=== PATIENT | male | born 1965 | race Caucasian/White ===

== ENCOUNTER 2018-03-14 10:05 | Outpatient (CLI) | payer BC | END 2018-03-14 10:06 | disposition home or self-care (01) | LOC: BICCT 10:05 | PROVIDERS: ATTEND Family Medicine | DX: Z12.31 Encounter for screening mammogram for malignant neoplasm of breast (principal); R10.10 Upper abdominal pain, unspecified; Z80.3 Family history of malignant neoplasm of breast | CPT/HCPCS: 74177 ==

== ENCOUNTER 2020-08-15 10:30 | Inpatient (IN) | payer BC ==
--- NOTE | 2020-08-21 16:44 | HP ---
HISTORY OF PRESENT ILLNESS: This is a 55-year-old gentleman with symptoms of angina and anterior lateral ischemia on stress test late last year. He underwent cardiac catheterization by Dr. Gallegos and was found to have significant LAD disease as well as intermediate ramus and circumflex. His potential targets of an LAD diagonal and distal branch of the obtuse marginal. The right coronary system has some disease, but is primarily distal. Cardiovascular risk factors include borderline hyperlipidemia, which has improved with lifestyle changes, and hypertension. He has no smoking history. He does have gastroesophageal reflux disease, anxiety disorder, and low back pain. HOME MEDICATIONS: Include: 1. Lisinopril 20 a day. 2. Atorvastatin 10 a day. 3. Aspirin 81 a day. ALLERGIES: NO KNOWN ALLERGIES. PAST SURGICAL HISTORY: Includes colonoscopy with polypectomy by Dr. Garcia. SOCIAL HISTORY: The patient is . 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 He does not exercise regularly. REVIEW OF SYSTEMS: Include frequent urination and all other questions in regard to symptoms were negative. PHYSICAL EXAMINATION: GENERAL: He is alert and cooperative gentleman. Height 6 feet 3 inches, weight 251 pounds. NECK: No carotid bruits. CARDIAC: Regular rate and rhythm. No murmurs. LUNGS: Clear to auscultation. ABDOMEN: Normal bowel sounds. Soft, nontender, and nondistended. EXTREMITIES: No clubbing, cyanosis, or edema. He has normal pulses with a good Jose Martin's test. NEUROLOGIC: Nonfocal. ASSESSMENT AND PLAN: The patient was seen about 5 weeks ago and has postponed his surgery until now. Plan on grafting to the LAD, diagonal, and obtuse marginal with a ELISE to the LAD and then saphenous vein to the diagonal and obtuse marginal. Job ID: [id number]
[2020-08-22] MEDS ORDERED: Albumin 5% 500 ML ONE (06:30)
[2020-08-22 06:35] LABS: #Eosinphils 0.2 thou/uL (0.0-0.7); #Monocytes 0.7 thou/uL (0.11-0.59); #Neutrophils 4.9 thou/uL (1.40-6.50); %Basophils 0.6 % (0.0-1.0); %Lymphocytes 25.3 % (21.0-51.0); %Monocytes 9.3 % (0.0-10.0); %Neutrophils 61.8 % (42.0-75.0); Hemoglobin 14.6 g/dL (14.0-18.0); Mean Corpuscular HGB CONC 34.5 g/dL (32.0-36.0); Mean Corpuscular Hemoglobin 31.9 pg (27.0-31.0); Mean Corpuscular Volume 92.4 fL (78.0-98.0); Mean Platelet Volume 8.9 fL (7.4-10.4); Platelet Count 212 thou/uL (130-400); RBC Distribution Width 12.4 % (11.5-14.5); Red Blood Cell (RBC) Count 4.57 mill/uL (4.70-6.10)
[2020-08-22] MEDS ORDERED: Fentanyl 250 MCG/5 ML VIAL ONE (06:43)
[2020-08-22] MEDS ORDERED: Dexmedetomidine 200 MCG/2 ML VIAL ONE (06:44)
[2020-08-22] MEDS ORDERED: Midazolam HCl 5 mg/5 ml Vial ONE (06:44)
[2020-08-22] MEDS ORDERED: Heparin 10,000 UNITS/1 ML VIAL 30,000 UNITS in Sodium Chloride 0.9% 1,000 ML FS SCH (06:45)
[2020-08-22 06:58] LABS: Anion Gap 14 mmol/L (10-20); BUN (Urea Nitrogen) 16 mg/dL (8.4-25.7); Calc. Creatinine Clearance 125 mL/min (70-130); Calcium 9.3 mg/dL (7.8-10.44); Carbon Dioxide 27 mmol/L (22-29); Chloride 103 mmol/L (98-107); Glucose 97 mg/dL (70-105); Potassium 4.9 mmol/L (3.5-5.1); Sodium 139 mmol/L (136-145)
[2020-08-22] MEDS ORDERED: Midazolam HCl 2 mg/2 ml Vial ONE ×2 (07:07→07:12)
[2020-08-22 07:12] LABS: SARS-CoV-2 NAA Rapid Test Not Detected (NotDetected)
[2020-08-22] MEDS ORDERED: Potassium Chloride 20 MEQ/100 ML PREMIX BAG IVPB PRN (12:19)
[2020-08-22] MEDS ORDERED: Bisacodyl 5 MG TAB PO PRN (12:19)
[2020-08-22] MEDS ORDERED: Fentanyl 100 MCG/2 ML VIAL SLOW IVP PRN (12:19)
[2020-08-22] MEDS ORDERED: Guaifenesin DM 100-10/5 ML UDCUP PO PRN (12:19)
[2020-08-22] MEDS ORDERED: Hetastarch 6% 500 ML 500 ML IVPB PRN (12:19)
[2020-08-22] MEDS ORDERED: Morphine 2 MG/ML VIAL SLOW IVP PRN (12:19)
[2020-08-22] MEDS ORDERED: Mag-Al 1200 mg/1200 mg/30 ML UDCUP PO PRN (12:19)
[2020-08-22] MEDS ORDERED: Norepinephrine 8 MG/0.9% NS 250 ML IVPB PRN (12:19)
[2020-08-22] MEDS ORDERED: Promethazine HCl 25 MG/ML VIAL IM PRN (12:19)
[2020-08-22] MEDS ORDERED: DOPamine 400 MG/D5W 250 ML 250 ML IVPB PRN (12:19)
[2020-08-22] MEDS ORDERED: Acetaminophen 325 MG TAB PO PRN (12:19)
[2020-08-22] MEDS ORDERED: Nitroglycerin 50 MG/250 ML BOT 250 ML IVPB PRN (12:19)
[2020-08-22] MEDS ORDERED: hydrALAZINE 20 MG/ML VIAL SLOW IVP PRN (12:19)
[2020-08-22] MEDS ORDERED: Bisacodyl 10 MG SUPP PR PRN (12:19)
[2020-08-22] MEDS ORDERED: Ondansetron PF 4 MG/2 ML Vial IVP PRN (12:19)
[2020-08-22] MEDS ORDERED: Post-Op Insulin Drip Protocol IVPB ONE (12:19)
[2020-08-22] MEDS ORDERED: niCARdipine 25 MG in Sodium Chloride 0.9% 250 ML 240 ML IVPB PRN (12:19)
[2020-08-22 12:30] LABS: #Eosinphils 0.1 thou/uL (0.0-0.7); #Lymphocytes 1.1 thou/uL (1.20-3.40); #Monocytes 0.7 thou/uL (0.11-0.59); #Neutrophils 11.6 thou/uL (1.40-6.50); %Basophils 0.3 % (0.0-1.0); %Eosinophils 0.6 % (0.0-10.0); %Lymphocytes 8.1 % (21.0-51.0); %Monocytes 4.9 % (0.0-10.0); %Neutrophils 86.1 % (42.0-75.0); Hemoglobin 13.5 g/dL (14.0-18.0); Mean Corpuscular HGB CONC 34.3 g/dL (32.0-36.0); Mean Corpuscular Hemoglobin 31.8 pg (27.0-31.0); Mean Corpuscular Volume 92.7 fL (78.0-98.0); Platelet Count 130 thou/uL (130-400); RBC Distribution Width 12.3 % (11.5-14.5); Red Blood Cell (RBC) Count 4.22 mill/uL (4.70-6.10); White Blood Cell (WBC) Count 13.5 thou/uL (4.8-10.8)
[2020-08-22] MEDS ORDERED: Magnesium 2 GM/50 ML 2 GM in Premix Bag 1 BAG IVPB SCH (12:30)
[2020-08-22 12:35] LABS: INR-International Normal Ratio 1.2; PTT 25.2 sec (22.9-36.1); Prothrombin Time 15.5 sec (12.0-14.7)
[2020-08-22] MEDS ORDERED: Dextrose 5% in Water 1,000 ML IV PRN (12:45)
[2020-08-22] MEDS ORDERED: Dextrose 50% Abboject 50 ML SYRINGE SLOW IVP PRN (12:45)
[2020-08-22] MEDS ORDERED: HUMULIN R 100 UNITS in Sodium Chloride 0.9% 100 ML IVPB SCH (12:45)
--- NOTE | 2020-08-22 12:45 | RAD ---
PORTABLE CHEST: HISTORY: Central line placement. FINDINGS: Heart size is enlarged. Postop sternotomy changes are seen. The right-sided central line is seen wi th catheter tip overlying the right atrium. No pneumothorax. IMPRESSION: 1. Right-sided central line placement. No signs of pneumothorax. 2. Post sternotomy change. POS: STEFANIE
[2020-08-22] MEDS: Fentanyl 100 MCG/2 ML VIAL SLOW IVP PRN ×2 (13:02→15:48)
[2020-08-22] MEDS: CEFAZOLIN 2 GM in Premix Bag 1 BAG IVPB SCH ×2 (13:04→21:36)
[2020-08-22] MEDS: Insulin Regular 300 UNITS/3 ML VIAL SC PRN ×3 (13:05→23:57)
[2020-08-22] MEDS: Ketorolac Tromethamine 30 MG/ML VIAL IVP SCH ×3 (13:06→23:54)
[2020-08-22] MEDS: Lactated Ringer's 1,000 ML IV SCH ×2 (13:07→23:55)
[2020-08-22 13:32] LABS: Anion Gap 13 mmol/L (10-20); BUN (Urea Nitrogen) 14 mg/dL (8.4-25.7); Calc. Creatinine Clearance 156 mL/min (70-130); Calcium 8.4 mg/dL (7.8-10.44); Carbon Dioxide 24 mmol/L (22-29); Chloride 108 mmol/L (98-107); Glucose 128 mg/dL (70-105); Potassium 4.4 mmol/L (3.5-5.1); Sodium 141 mmol/L (136-145)
--- NOTE | 2020-08-22 13:50 | OP ---
DATE OF PROCEDURE: 08/22/2020 PREOPERATIVE DIAGNOSIS: Coronary artery disease. POSTOPERATIVE DIAGNOSIS: Coronary artery disease with false passage on attempt at placing urinary catheter. PROCEDURE PERFORMED: Urethral cystoscopy with placement of a [place] tip Gibson catheter and coronary artery bypass grafting x3, left internal mammary artery good quality to a good quality left anterior descending, saphenous vein good quality to a 2 mm diagonal and 1.5 mm obtuse marginal. HOOKING MACHINE OPERATOR: Dr. Gomez. TRANSFUSION: None. DESCRIPTION OF PROCEDURE: After adequate anesthesia had been obtained, the patient was not prepped and draped because the Gibson catheter could not be passed. The cystoscope was then passed by myself and a false passage was identified and ultimately, the true lumen was identified. The cystoscope inserted and a wire placed in the bladder. Following which, a 16 [place] tip catheter was advanced and urine obtained. Following this, the patient was prepped and draped. Dr. Gomez did an endovascular vein harvest while I performed a median sternotomy. Left internal mammary artery was harvested, widely opening of the left pleura. Following heparinization, the mammary was divided distally. There was a very large amount of thymic tissue, which was excised to allow access to the aorta. Following aortic and right atrial cannulation, cardiopulmonary bypass was instituted. Vessels inspected and the aorta was cross-clamped and a liter of cold blood cardioplegia given through the aortic root. The three distal anastomoses were completed, following which, the cross-clamp was removed and the partial occluding clamp placed and 2 proximal anastomoses performed on the aortic root and marked with rings. Following this, proximal and distal anastomosis were inspected. The patient was then weaned from cardiopulmonary bypass. Cannulas were removed and protamine was given systemically. After obtaining good hemostasis, mediastinal and left pleural drains were placed, following which, the sternum was reapproximated with #7 interrupted wire using vancomycin paste on the sternal edges, platelet-rich blood and platelet-poor plasma. Subcutaneous tissue and skin were closed in layers. Job ID: [id number]
[2020-08-22] MEDS ORDERED: Norepinephrine 4 MG/4 ML VIAL ONE (15:44)
[2020-08-22] MEDS ORDERED: Potassium Chloride 60 MEQ/30 ML VIAL ONE (15:44)
[2020-08-22] MEDS ORDERED: Calcium Chloride 1 GM/10 ML Abboject SYRINGE ONE (15:44)
[2020-08-22] MEDS ORDERED: Vecuronium 10 MG VIAL ONE (15:44)
[2020-08-22] MEDS ORDERED: Nitroglycerin 50 MG/250 ML BOT ONE (15:44)
[2020-08-22] MEDS ORDERED: Mannitol 12.5 GM/50 ML ONE (15:44)
[2020-08-22] MEDS ORDERED: Thrombin 5000 UNITS/5 ML VIAL ONE (15:44)
[2020-08-22] MEDS ORDERED: Heparin 5,000 UNITS/ML VIAL ONE (15:44)
[2020-08-22] MEDS ORDERED: Lidocaine 2% PF 100 mg/5 ml Syringe ONE (15:44)
[2020-08-22] MEDS ORDERED: Glycopyrrolate 0.2 MG/ML 5 ML SYRINGE ONE (15:44)
[2020-08-22] MEDS ORDERED: Ondansetron PF 4 MG/2 ML Vial ONE (15:44)
[2020-08-22] MEDS ORDERED: Aminocaproic Acid 5 GM/20 ML VIAL ONE (15:44)
[2020-08-22] MEDS ORDERED: Heparin 30,000 units/30 ml VIAL ONE (15:44)
[2020-08-22] MEDS ORDERED: Lidocaine 1% PF 5 ML VIAL ONE (15:44)
[2020-08-22] MEDS ORDERED: Ketorolac Tromethamine 30 MG/ML VIAL ONE (15:44)
[2020-08-22] MEDS ORDERED: Papaverine 60 MG/2 ML VIAL ONE (15:44)
[2020-08-22] MEDS ORDERED: Cardioplegic Soln 1,000 ML BAG ONE (15:44)
[2020-08-22] MEDS ORDERED: Protamine Sulfate 250 MG/25 ML VIAL ONE (15:44)
[2020-08-22] MEDS ORDERED: Sodium Bicarb 50 MEQ/50 ML Abboject 8.4% SYRINGE ONE (15:44)
[2020-08-22] MEDS ORDERED: PROPOFOL 200 MG/20 ML VIAL ONE (15:44)
[2020-08-22] MEDS ORDERED: Dexamethasone 20 MG/5 ML VIAL ONE (15:44)
[2020-08-22] MEDS ORDERED: Magnesium Sulfate 1 GM/2 ML VIAL ONE (15:44)
--- NOTE | 2020-08-22 16:08 | CON ---
DATE OF CONSULTATION: 08/22/2020 REASON FOR CONSULTATION: Status post CABG. HISTORY OF PRESENT ILLNESS: Mr. Araiza is a very pleasant 55-year-old white gentleman, who comes to the hospital for a planned bypass. He underwent left heart catheterization earlier in the year and was found to have a complex LAD lesion, so he was referred to Dr. Bird for surgery. He had been rescheduled several times due to the coronavirus crisis, but eventually, we were able to get him in today. Dr. Bird did his bypass earlier today. On my evaluation, Mr. Araiza is extubated and doing well, complaining of just soreness of his chest, but denies any other issues. PAST MEDICAL HISTORY: 1. Hypertension. 2. CAD. OUTPATIENT MEDICATIONS: 1. Atorvastatin 10 mg a day. 2. Aspirin 81 mg a day. 3. Lisinopril 20 mg a day. PAST SURGICAL HISTORY: 1. Heart catheterization as above. 2. CABG earlier today. 3. Colonoscopy with polypectomy with Dr. Garcia. FAMILY HISTORY: Noncontributory. SOCIAL HISTORY: No alcohol, tobacco, or drugs. 2 to 3 cups of coffee and soda a day. Social alcohol use. ALLERGIES: NO KNOWN DRUG ALLERGIES. REVIEW OF SYSTEMS: A 12-point review of systems was done and was found to be negative other than stated in the history of present illness. PHYSICAL EXAMINATION: VITAL SIGNS: Temperature 98.2, pulse 77, respiratory rate 16, saturating 99% on room air, blood pressure 107/56. GENERAL: Awake, alert, oriented x3. No distress. HEENT: Normocephalic, atraumatic. NECK: Supple. LUNGS: Clear. CARDIOVASCULAR: S1 and S2. Three-component rub. He has chest tubes in place. ABDOMEN: Soft. EXTREMITIES: [place] from the left leg. Trace edema. SKIN: Warm and dry. LABORATORY DATA: Laboratory work was reviewed. White count after the bypass at 13, hemoglobin 13.5, hematocrit 39, platelet count 130. Coags were normal. Chemistries were unremarkable postop. COVID PCR was negative on that is today. ASSESSMENT: 1. Complex coronary artery disease, status post CABG. 2. Hypertension. PLAN: 1. Continue postoperative care. 2. Aspirin and statin for life. 3. Beta elizabeth and SAIMA inhibitor once blood pressure allow. Thank you for letting us to participate in the care of your patient. We will follow. Job ID: [id number]
[2020-08-22] MEDS: HYDROcodone/Acetaminophen 5/325 mg Tablet PO PRN ×2 (17:45→21:36)
[2020-08-22 17:56] LABS: Hemoglobin 13.8 g/dL (14.0-18.0)
[2020-08-22 18:17] LABS: Potassium 4.2 mmol/L (3.5-5.1)
[2020-08-22] MEDS ORDERED: Atorvastatin Calcium 20 MG TAB PO SCH (21:00)
[2020-08-22] MEDS ORDERED: Simvastatin 20 MG TAB PO SCH (21:00)
--- NOTE | 2020-08-22 21:25 | EKG ---
Test Reason : POST CABG Blood Pressure : / mmHG Vent. Rate : 074 BPM Atrial Rate : 074 BPM P-R Int : 188 ms QRS Dur : 092 ms QT Int : 434 ms P-R-T Axes : 063 039 046 degrees QTc Int : 481 ms Normal sinus rhythm Prolonged QT Abnormal ECG Confirmed by KYLE CORNELL, DR. Mao ([id number]) on 08/22/2020 9:25:14 PM Referred By: JOSE GUADALUPE Confirmed By:DR. Daylin WRIGHT MD
[2020-08-22] MEDS: Famotidine/PF 20 mg/2ml Vial SLOW IVP SCH (21:35)
[2020-08-23 04:39] LABS: #Monocytes 1.2 thou/uL (0.11-0.59); #Neutrophils 14.9 thou/uL (1.40-6.50); %Eosinophils 0.1 % (0.0-10.0); %Lymphocytes 5.9 % (21.0-51.0); %Monocytes 7.2 % (0.0-10.0); %Neutrophils 86.8 % (42.0-75.0); Mean Corpuscular HGB CONC 32.6 g/dL (32.0-36.0); Mean Corpuscular Hemoglobin 29.9 pg (27.0-31.0); Mean Corpuscular Volume 91.6 fL (78.0-98.0); Mean Platelet Volume 8.9 fL (7.4-10.4); Platelet Count 207 thou/uL (130-400); RBC Distribution Width 12.5 % (11.5-14.5); Red Blood Cell (RBC) Count 4.02 mill/uL (4.70-6.10); White Blood Cell (WBC) Count 17.1 thou/uL (4.8-10.8)
[2020-08-23 04:58] LABS: Anion Gap 13 mmol/L (10-20); BUN (Urea Nitrogen) 15 mg/dL (8.4-25.7); Calc. Creatinine Clearance 148 mL/min (70-130); Calcium 7.8 mg/dL (7.8-10.44); Carbon Dioxide 23 mmol/L (22-29); Chloride 103 mmol/L (98-107); Glucose 139 mg/dL (70-105); Potassium 4.3 mmol/L (3.5-5.1); Sodium 135 mmol/L (136-145)
[2020-08-23] MEDS: Ketorolac Tromethamine 30 MG/ML VIAL IVP SCH ×4 (06:01→23:29)
[2020-08-23] MEDS: CEFAZOLIN 2 GM in Premix Bag 1 BAG IVPB SCH (06:01)
[2020-08-23] MEDS: Aspirin 325 MG TAB PO SCH (07:48)
[2020-08-23] MEDS: Famotidine/PF 20 mg/2ml Vial SLOW IVP SCH (07:48)
--- NOTE | 2020-08-23 08:14 | RAD ---
Exam: Chest one view HISTORY:Status post open heart surgery Comparison: 08/22/2020 FINDINGS: Lines and tubes: Stable sternotomy wires, left sided mediastinal drainage catheter and right-sided santacruz bclavian vascular catheter. Cardiac silhouette:Cardiomegaly. Aorta: Unremarkable Pulmonary vessels: Normal Costophrenic angles: Clear LUNGS: No masses or consolidation. Pneumothorax: None Osseous abnormalities: None IMPRESSION: Stable postoperative changes.
--- NOTE | 2020-08-23 09:21 | PRG ---
DATE OF SERVICE: SUBJECTIVE: Postoperative day #1 from coronary artery bypass graft x3. His first postoperative night was uneventful and he is currently sitting in the chair. His sugars have been good. His hemoglobin is 12 and his platelet count is 207. His creatinine is 0.9 and sugars have been reasonably good off insulin. His chest tube is at 375. He has no complaints. Lungs are clear. He has good color and no distress. PLAN: At this time is for a transfer to the floor. Due to his widely opened left pleura, we will leave his chest tube for one more day and begin Lasix tomorrow. Resume his beta-elizabeth when he can tolerate and then begin physical therapy. We will continue antibiotics for the time being with his urethral false passage and we will leave his Gibson catheter in probably until Wednesday and remove it Wednesday morning. Job ID: [id number]
[2020-08-23] MEDS: Lactated Ringer's 1,000 ML IV SCH (10:59)
[2020-08-23] MEDS: HYDROcodone/Acetaminophen 5/325 mg Tablet PO PRN ×2 (11:23→21:19)
[2020-08-23] MEDS ORDERED: Zolpidem Tartrate 5 MG TAB PO PRN (12:44)
[2020-08-23] MEDS ORDERED: Nitroglycerin 0.4 MG TAB (25 Tab Bottle) SL PRN (12:44)
[2020-08-23] MEDS ORDERED: diphenhydrAMINE 25 MG CAP PO PRN (12:44)
[2020-08-23] MEDS ORDERED: Polyethylene Glycol 3350 17 GM Packet PO SCH (13:00)
--- NOTE | 2020-08-23 15:09 | PDOC.CPN ---
- Subjective Date: 08/23/20 Time: 15:07 Interval history: He is doing much better. Passing gas but no BM. - Review of Systems General: denies: fever/chills, weight/appetite/sleep changes, night sweats, fatigue Respiratory: denies: cough, congestion, shortness of breath, exercise intolerance Cardiovascular: denies: chest pain, palpitation, edema, paroxysmal nocturnal dyspnea, orthopnea Gastrointestinal: denies: nausea, vomiting, diarrhea, constipation, abd pain, GI bleeding Musculoskeletal: denies: pain, tenderness, stiffness, swelling, arthritis/arthr algias Neurological: denies: numbness, syncope, seizure, weakness - Objective Allergies/Adverse Reactions: Allergies Allergy/AdvReac Type Severity Reaction Status Date / Time No Known Drug Allergies Allergy Verified 08/21/20 12:50 Visit Medications: Current Medications Acetaminophen (Acetaminophen 325 Mg Tab) 650 mg PO Q6H PRN PRN Reason: Headache/Fever Or Mild Pain Hydrocodone Bitart/Acetaminophen (Hydrocodone/Acetaminophen 5/325 Mg Tablet) 1 tab PO Q4H PRN PRN Reason: Moderate Pain (4-6) Last Admin: 08/22/20 17:45 Dose: 1 tab Documented by: Hydrocodone Bitart/Acetaminophen (Hydrocodone/Acetaminophen 5/325 Mg Tablet) 2 tab PO Q4H PRN PRN Reason: Severe Pain (7-10) Last Admin: 08/23/20 11:23 Dose: 2 tab Documented by: Al Hydroxide/Mg Hydroxide (Mag-Al 1200 Mg/1200 Mg/30 Ml Udcup) 30 ml PO Q4H PRN PRN Reason: Indigestion Albuterol/Ipratropium (Ipratropium/Albuterol Sulfate 3 Ml Neb) 3 ml NEB [id number] PRN PRN Reason: SOB Aspirin (Aspirin 325 Mg Tab) 325 mg PO DAILY [facility] Last Admin: 08/23/20 07:48 Dose: 325 mg Documented by: Atorvastatin Calcium (Atorvastatin Calcium 20 Mg Tab) 20 mg PO HS [facility] Last Admin: 08/22/20 21:35 Dose: 20 mg Documented by: Atorvastatin Calcium (Atorvastatin Calcium 10 Mg Tab) 10 mg PO HS [facility] Bisacodyl (Bisacodyl 5 Mg Tab) 10 mg PO Q12H PRN PRN Reason: Constipation Bisacodyl (Bisacodyl 10 Mg Supp) 10 mg AK Q12H PRN PRN Reason: Constipation Diphenhydramine HCl (Diphenhydramine 25 Mg Cap) 25 mg PO Q6H PRN PRN Reason: Itching & Insomnia or Leon Micky Famotidine (Famotidine 20 Mg Tab) 20 mg PO BID [facility] Fentanyl (Fentanyl 100 Mcg/2 Ml Vial) 25 mcg SLOW IVP Q2H PRN PRN Reason: Moderate Pain (4-6) Stop: 08/24/20 11:25 Last Admin: 08/22/20 15:48 Dose: 25 mcg Documented by: Fentanyl (Fentanyl 100 Mcg/2 Ml Vial) 50 mcg SLOW IVP Q2H PRN PRN Reason: Severe Pain (7-10) Stop: 08/24/20 11:25 Furosemide (Furosemide 40 Mg Tab) 40 mg PO DAILY [facility] Guaifenesin/Dextromethorphan (Guaifenesin Dm 100-10/5 Ml Udcup) 15 ml PO Q4H PRN PRN Reason: Cough Ceftriaxone Sodium 1 gm/ (Sodium Chloride) 100 mls @ 200 mls/hr IVPB 0600 [facility] Ketorolac Tromethamine (Ketorolac Tromethamine 30 Mg/Ml Vial) 15 mg IVP Q6HR [facility] Stop: 08/27/20 12:01 Last Admin: 08/23/20 11:24 Dose: 15 mg Documented by: Nitroglycerin (Nitroglycerin 0.4 Mg Tab (25 Tab Bottle)) 0.4 mg SL Q5MIN PRN PRN Reason: Chest Pain Ondansetron HCl (Ondansetron Pf 4 Mg/2 Ml Vial) 4 mg IVP Q6H PRN PRN Reason: Nausea/Vomiting Polyethylene Glycol (Polyethylene Glycol 3350 17 Gm Packet) 17 gm PO DAILY [facility] Potassium Chloride (Potassium Chloride 10 Meq Tab) 10 meq PO QAM-WM [facility] Promethazine HCl (Promethazine Hcl 25 Mg/Ml Vial) 6.25 mg IM Q4H PRN PRN Reason: Nausea/Vomiting Zolpidem Tartrate (Zolpidem Tartrate 5 Mg Tab) 5 mg PO HSPRN PRN PRN Reason: Insomnia Vital Signs & Weight: Vital Signs Temp Pulse Resp BP Pulse Ox 08/23/20 12:15 99.6 F 81 17 150/78 H 94 L 08/23/20 07:19 99 08/23/20 07:00 98.0 F Weight 254 lb 10.142 oz - Physical Exam General: alert & oriented x3 HEENT: mucus membranes moist Neck: supple neck Cardiac: regular rate and rhythm Lungs: clear to auscultation Neuro: grossly intact Abdomen: active bowel sounds Extremities: no edema Skin: clear Musculoskeletal: normal range of motion - Labs Result Diagrams: 08/23/20 04:20 08/23/20 04:20 - Telemetry Sinus rhythms and dysrhythmias: sinus rhythm - Assessment/Plan Assessment/Plan: 1. CAD 2. S/P CABG 3. HTN PLAN: - ASA/statin for life - Low dose ACEI tomorrow - BB in next few days.
[2020-08-23] MEDS: Atorvastatin Calcium 10 MG TAB PO SCH (20:42)
[2020-08-23] MEDS: Famotidine 20 MG TAB PO SCH (20:42)
[2020-08-24] MEDS: cefTRIAXone\\ROCEPHIN 1 GM in Sodium Chloride 0.9% 100 ML IVPB SCH (05:59)
[2020-08-24] MEDS: Ketorolac Tromethamine 30 MG/ML VIAL IVP SCH ×4 (06:00→23:36)
[2020-08-24] MEDS: Aspirin 325 MG TAB PO SCH (08:20)
[2020-08-24] MEDS: Famotidine 20 MG TAB PO SCH ×2 (08:20→20:56)
[2020-08-24] MEDS: Lisinopril 2.5 MG TAB PO SCH (08:20)
[2020-08-24] MEDS: Potassium Chloride 10 MEQ TAB PO SCH (08:21)
[2020-08-24] MEDS: Polyethylene Glycol 3350 17 GM Packet PO SCH (08:21)
[2020-08-24] MEDS: Furosemide 40 MG TAB PO SCH (08:21)
--- NOTE | 2020-08-24 11:11 | PDOC.CPN ---
- Subjective Date: 08/24/20 Time: 10:00 Interval history: No overnight events. No complaints. feels great overall. Had a mild fever last night now resolved. - Review of Systems General: reports: fever/chills. denies: weight/appetite/sleep changes, night sw eats, fatigue Respiratory: denies: cough, congestion, shortness of breath, exercise intolerance Cardiovascular: denies: chest pain, palpitation, edema, paroxysmal nocturnal dyspnea, orthopnea Gastrointestinal: denies: nausea, vomiting, diarrhea, constipation, abd pain, GI bleeding Musculoskeletal: denies: pain, tenderness, stiffness, swelling, arthritis/arthralgias Neurological: denies: numbness, syncope, seizure, weakness - Objective Allergies/Adverse Reactions: Allergies Allergy/AdvReac Type Severity Reaction Status Date / Time No Known Drug Allergies Allergy Verified 08/21/20 12:50 Visit Medications: Current Medications Acetaminophen (Acetaminophen 325 Mg Tab) 650 mg PO Q6H PRN PRN Reason: Headache/Fever Or Mild Pain Last Admin: 08/23/20 23:41 Dose: 650 mg Documented by: Hydrocodone Bitart/Acetaminophen (Hydrocodone/Acetaminophen 5/325 Mg Tablet) 1 tab PO Q4H PRN PRN Reason: Moderate Pain (4-6) Last Admin: 08/23/20 21:19 Dose: 1 tab Documented by: Hydrocodone Bitart/Acetaminophen (Hydrocodone/Acetaminophen 5/325 Mg Tablet) 2 tab PO Q4H PRN PRN Reason: Severe Pain (7-10) Last Admin: 08/23/20 11:23 Dose: 2 tab Documented by: Al Hydroxide/Mg Hydroxide (Mag-Al 1200 Mg/1200 Mg/30 Ml Udcup) 30 ml PO Q4H PRN PRN Reason: Indigestion Albuterol/Ipratropium (Ipratropium/Albuterol Sulfate 3 Ml Neb) 3 ml NEB [id number] PRN PRN Reason: SOB Aspirin (Aspirin 325 Mg Tab) 325 mg PO DAILY [facility] Last Admin: 08/24/20 08:20 Dose: 325 mg Documented by: Atorvastatin Calcium (Atorvastatin Calcium 10 Mg Tab) 10 mg PO HS [facility] Last Admin: 08/23/20 20:42 Dose: 10 mg Documented by: Bisacodyl (Bisacodyl 5 Mg Tab) 10 mg PO Q12H PRN PRN Reason: Constipation Bisacodyl (Bisacodyl 10 Mg Supp) 10 mg IA Q12H PRN PRN Reason: Constipation Diphenhydramine HCl (Diphenhydramine 25 Mg Cap) 25 mg PO Q6H PRN PRN Reason: Itching & Insomnia or Leon Micky Famotidine (Famotidine 20 Mg Tab) 20 mg PO BID [facility] Last Admin: 08/24/20 08:20 Dose: 20 mg Documented by: Fentanyl (Fentanyl 100 Mcg/2 Ml Vial) 25 mcg SLOW IVP Q2H PRN PRN Reason: Moderate Pain (4-6) Stop: 08/24/20 11:25 Last Admin: 08/22/20 15:48 Dose: 25 mcg Documented by: Fentanyl (Fentanyl 100 Mcg/2 Ml Vial) 50 mcg SLOW IVP Q2H PRN PRN Reason: Severe Pain (7-10) Stop: 08/24/20 11:25 Furosemide (Furosemide 40 Mg Tab) 40 mg PO DAILY [facility] Last Admin: 08/24/20 08:21 Dose: 40 mg Documented by: Guaifenesin/Dextromethorphan (Guaifenesin Dm 100-10/5 Ml Udcup) 15 ml PO Q4H PRN PRN Reason: Cough Ceftriaxone Sodium 1 gm/ (Sodium Chloride) 100 mls @ 200 mls/hr IVPB 0600 [facility] Last Admin: 08/24/20 05:59 Dose: 100 mls Documented by: Ketorolac Tromethamine (Ketorolac Tromethamine 30 Mg/Ml Vial) 15 mg IVP Q6HR [facility] Stop: 08/27/20 12:01 Last Admin: 08/24/20 06:00 Dose: 15 mg Documented by: Lisinopril (Lisinopril 2.5 Mg Tab) 2.5 mg PO DAILY [facility] Last Admin: 08/24/20 08:20 Dose: 2.5 mg Documented by: Nitroglycerin (Nitroglycerin 0.4 Mg Tab (25 Tab Bottle)) 0.4 mg SL Q5MIN PRN PRN Reason: Chest Pain Ondansetron HCl (Ondansetron Pf 4 Mg/2 Ml Vial) 4 mg IVP Q6H PRN PRN Reason: Nausea/Vomiting Polyethylene Glycol (Polyethylene Glycol 3350 17 Gm Packet) 17 gm PO DAILY [facility] Last Admin: 08/24/20 08:21 Dose: 17 gm Documented by: Potassium Chloride (Potassium Chloride 10 Meq Tab) 10 meq PO QAM-WM [facility] Last Admin: 08/24/20 08:21 Dose: 10 meq Documented by: Promethazine HCl (Promethazine Hcl 25 Mg/Ml Vial) 6.25 mg IM Q4H PRN PRN Reason: Nausea/Vomiting Zolpidem Tartrate (Zolpidem Tartrate 5 Mg Tab) 5 mg PO HSPRN PRN PRN Reason: Insomnia Vital Signs & Weight: Vital Signs Temp Pulse Resp BP BP Pulse Ox 08/24/20 07:44 99.0 F 87 18 116/63 94 L 08/24/20 04:00 99 F 71 18 105/53 L 93 L 08/23/20 23:41 100.3 F H 08/23/20 23:27 100.3 F H 97 16 120/66 Weight 249 lb - Physical Exam General: alert & oriented x3, appears well, no apparent distress HEENT: mucus membranes moist Neck: supple neck Cardiac: regular rate and rhythm Lungs: clear to auscultation Neuro: grossly intact Abdomen: soft, non-tender Extremities: no cyanosis, no edema Musculoskeletal: no pain - Labs Result Diagrams: 08/23/20 04:20 08/23/20 04:20 - Assessment/Plan Assessment/Plan: 1. CAD s/p CABG 2. HTN Overall Doing great. Continue walking. Hopefully home in the next 48 hours. R08/24/2020 Pt seen and evaluated. Agree with above assessment. No changes
[2020-08-24] MEDS: Atorvastatin Calcium 10 MG TAB PO SCH (20:56)
[2020-08-25 05:46] VITALS: BMI 31.0
[2020-08-25] MEDS: cefTRIAXone\\ROCEPHIN 1 GM in Sodium Chloride 0.9% 100 ML IVPB SCH (05:47)
[2020-08-25] MEDS: Ketorolac Tromethamine 30 MG/ML VIAL IVP SCH ×2 (05:57→14:10)
[2020-08-25] MEDS: Lisinopril 2.5 MG TAB PO SCH (08:37)
[2020-08-25] MEDS: Potassium Chloride 10 MEQ TAB PO SCH (08:37)
[2020-08-25] MEDS: Aspirin 325 MG TAB PO SCH (08:37)
[2020-08-25] MEDS: Famotidine 20 MG TAB PO SCH (08:37)
[2020-08-25] MEDS: Furosemide 40 MG TAB PO SCH (08:37)
[2020-08-25] MEDS: Polyethylene Glycol 3350 17 GM Packet PO SCH (08:39)
[2020-08-25 11:14] VITALS: TEMP 98.9
[2020-08-25 12:26] VITALS: BP 138/79
[2020-08-25] MEDS ORDERED: Metoprolol Tartrate 25 MG TAB PO SCH (21:00)
== END 2020-08-25 13:00 | disposition home or self-care (01) | DRG 236 ==
LOC: EDSTATUS 08-20 10:30 → SURG A 08-22 05:57 → IMCU/EMU 08-22 12:21 → 2NO 08-23 12:13
PROVIDERS: ADMIT Thoracic Surgery (Cardiothoracic Vascular Surgery); ATTEND Thoracic Surgery (Cardiothoracic Vascular Surgery)
PROC: 02100Z9 Bypass Coronary Artery, One Artery from Left Internal Mammary, Open Approach (ICD-10-PCS; principal; 2020-08-22)
PROC: 021109W Bypass Coronary Artery, Two Arteries from Aorta with Autologous Venous Tissue, Open Approach (ICD-10-PCS; 2020-08-22)
PROC: 06BQ4ZZ Excision of Left Saphenous Vein, Percutaneous Endoscopic Approach (ICD-10-PCS; 2020-08-22)
PROC: 5A1221Z Performance of Cardiac Output, Continuous (ICD-10-PCS; 2020-08-22)
PROC: 02H633Z Insertion of Infusion Device into Right Atrium, Percutaneous Approach (ICD-10-PCS; 2020-08-22)
DX: I25.10 Atherosclerotic heart disease of native coronary artery without angina pectoris (principal); K21.9 Gastro-esophageal reflux disease without esophagitis; F41.9 Anxiety disorder, unspecified; M54.5 Low back pain; I10 Essential (primary) hypertension; Z98.890 Other specified postprocedural states; Z79.82 Long term (current) use of aspirin; Z79.899 Other long term (current) drug therapy; Z82.49 Family history of ischemic heart disease and other diseases of the circulatory system; E78.2 Mixed hyperlipidemia; Z20.822 Contact with and (suspected) exposure to COVID-19
CPT/HCPCS: 36415; 36416; 36430; 71045; 80048; 80053; 82553; 83735; 84484; 85025; 85610; 85730; 86850; 86900; 86901; 93005; 93010; 93798; 96365; 96375; 96376; G0378; J0282; J0690; J0696; J1100; J1642; J1644; J1815; J1885; J2001; J2150; J2250; J2405; J2440; J2704; J2720; J3010; J3370; J3475; J3480; J3490; J7070; P9045; S0017; S0028; U0002

== ENCOUNTER 2020-08-25 16:50 | Inpatient (IN) | payer BC ==
--- NOTE | 2020-08-25 17:22 | RAD ---
Portable frontal chest radiograph: 08/25/2020 COMPARISON: 08/23/2020 HISTORY: Chest pain FINDINGS: Heart and mediastinal contours are stable. Stable midline sternotomy wires. No pneumothorax , focal consolidation, or alveolar edema. Mild increased linear density in the left perihilar region suggests volume loss or scar. Mild infiltrate is less likely. IMPRESSION: No focal consolidation or alveolar edema. Mild linear density in the left perihilar regio n.
[2020-08-25 17:30] LABS: #Eosinphils 0.1 thou/uL (0.0-0.7); #Monocytes 0.9 thou/uL (0.11-0.59); #Neutrophils 8.7 thou/uL (1.40-6.50); %Basophils 0.3 % (0.0-1.0); %Eosinophils 0.7 % (0.0-10.0); %Lymphocytes 9.4 % (21.0-51.0); %Neutrophils 81.7 % (42.0-75.0); Hemoglobin 11.6 g/dL (14.0-18.0); Mean Corpuscular HGB CONC 34.4 g/dL (32.0-36.0); Mean Corpuscular Hemoglobin 31.4 pg (27.0-31.0); Mean Corpuscular Volume 91.4 fL (78.0-98.0); Mean Platelet Volume 8.7 fL (7.4-10.4); Platelet Count 175 thou/uL (130-400); RBC Distribution Width 12.3 % (11.5-14.5); Red Blood Cell (RBC) Count 3.69 mill/uL (4.70-6.10); White Blood Cell (WBC) Count 10.7 thou/uL (4.8-10.8)
[2020-08-25] MEDS ORDERED: Amiodarone HCl 150 MG in Dextrose 5% in Water 100 ML IVPB SCH (17:30)
[2020-08-25] MEDS ORDERED: Amiodarone HCl 450 MG in Dextrose 5% in Water 250 ML IVPB SCH (17:30)
[2020-08-25 17:46] LABS: Albumin 3.5 g/dL (3.5-5.0); Calcium 8.2 mg/dL (7.8-10.44); Chloride 105 mmol/L (98-107); Globulin 2.7 g/dL (2.4-3.5); Glucose 137 mg/dL (70-105); Protein, Total 6.2 g/dL (6.0-8.3); Sodium 138 mmol/L (136-145)
[2020-08-25 17:59] LABS: ALT (SGPT) 21 U/L (8-55); AST (SGOT) 23 U/L (5-34); Alkaline Phosphatase 52 U/L (40-110); BUN (Urea Nitrogen) 14 mg/dL (8.4-25.7); Bilirubin, Total 0.9 mg/dL (0.2-1.2); Calc. Creatinine Clearance 0 mL/min (70-130); Carbon Dioxide 22 mmol/L (22-29); Magnesium 2.1 mg/dL (1.6-2.6)
[2020-08-25 18:06] LABS: Anion Gap 15 mmol/L (10-20)
[2020-08-25 18:10] LABS: CKMB 0.7 ng/mL (0-6.6)
--- NOTE | 2020-08-25 21:04 | PDOC.HHP ---
Hospitalist HPI dizziness History of Present Illness: 55 yr old male with HTN , HLD, CAD s/p 3 V CABG 4 days ago , s/p discharge home today but developed sudden recurrent dizziness, nausea but no vomiting and palpitations after meals this pm . He checks his home vitals and noted HR elevated to 170s . He was brought by EMS -on arrival in ER , noted with SVT to 190s , He received Cardizem with improved to 106 and started on amiodarone gtt - denies any chest pain , no SOB -feels fine with HR down to 70s now -Being adm for SVT post CABG Allergies/Adverse Reactions: Allergy/AdvReac Type Severity Reaction Status Date / Time No Known Drug Allergies Allergy Verified 08/21/20 12:50 Home Medications: Medication Instructions Recorded Confirmed Type Atorvastatin Calcium 10 mg PO HS 08/21/20 08/21/20 History Aspirin 325 mg PO DAILY #120 tab 08/25/20 Rx HYDROcodone Bit/APAP 5/325 [[place]] 2 tab PO Q4H PRN #30 tab 08/25/20 Rx Levofloxacin [Levaquin] 750 mg PO 0600 #7 tab 08/25/20 Rx Lisinopril [Zestril] 2.5 mg PO DAILY #90 tab 08/25/20 Rx Metoprolol Tartrate [Lopressor] 0.5 tab PO BID #15 tab 08/25/20 Rx Past History: PMHx:CAD , HTN , CABG PSHx:CABG [address] Araujo FHx:not contributory Social: No smoking , no alcohol abuse, no illicit drug abuse Hospitalist HPI ROS All other systems reviewed; all pertinent +/- noted in HPI/Subj Hospitalist Exam General Appearance: NAD, awake alert Eye: PERRL, anicteric sclera ENT: normocephalic atraumatic, no oropharyngeal lesions Neck: supple, symmetric Heart: RRR, no murmur Respiratory: CTAB, no wheezes Gastrointestinal: soft, non-tender, non-distended, no palpable masses Extremities: no cyanosis, no clubbing Skin: normal turgor, no lesions Neurological: cranial nerve grossly intact, normal sensation to touch Musculoskeletal: normal tone, normal strength Psychiatric: normal affect, normal behavior, oriented to place Hospitalist Results Result Diagrams: 08/25/20 17:20 08/25/20 17:20 Lab results: Laboratory Last Values WBC 10.7 thou/uL (4.8-10.8) 08/25/20 17:20 RBC 3.69 mill/uL (4.70-6.10) L 08/25/20 17:20 Hgb 11.6 g/dL (14.0-18.0) L 08/25/20 17:20 Hct 33.7 % (42.0-52.0) L 08/25/20 17:20 MCV 91.4 fL (78.0-98.0) 08/25/20 17:20 MCH 31.4 pg (27.0-31.0) H 08/25/20 17:20 MCHC 34.4 g/dL (32.0-36.0) 08/25/20 17:20 RDW 12.3 % (11.5-14.5) 08/25/20 17:20 Plt Count 175 thou/uL (130-400) 08/25/20 17:20 MPV 8.7 fL (7.4-10.4) 08/25/20 17:20 Neutrophils % 81.7 % (42.0-75.0) H 08/25/20 17:20 Lymphocytes % 9.4 % (21.0-51.0) L 08/25/20 17:20 Monocytes % 8.0 % (0.0-10.0) 08/25/20 17:20 Eosinophils % 0.7 % (0.0-10.0) 08/25/20 17:20 Basophils % 0.3 % (0.0-1.0) 08/25/20 17:20 Neutrophils # 8.7 thou/uL (1.40-6.50) H 08/25/20 17:20 Lymphocytes # 1.0 thou/uL (1.20-3.40) L 08/25/20 17:20 Monocytes # 0.9 thou/uL (0.11-0.59) H 08/25/20 17:20 Eosinophils # 0.1 thou/uL (0.0-0.7) 08/25/20 17:20 Basophils # 0.0 thou/uL (0.0-0.2) 08/25/20 17:20 Sodium 138 mmol/L (136-145) 08/25/20 17:20 Potassium 4.0 mmol/L (3.5-5.1) 08/25/20 17:20 Chloride 105 mmol/L (98-107) 08/25/20 17:20 Carbon Dioxide 22 mmol/L (22-29) 08/25/20 17:20 Anion Gap 15 mmol/L (10-20) 08/25/20 17:20 BUN 14 mg/dL (8.4-25.7) 08/25/20 17:20 Creatinine 0.90 mg/dL (0.7-1.3) 08/25/20 17:20 Estimated GFR (MDRD) 88 08/25/20 17:20 Glucose 137 mg/dL (70-105) H 08/25/20 17:20 Calcium 8.2 mg/dL (7.8-10.44) 08/25/20 17:20 Magnesium 2.1 mg/dL (1.6-2.6) 08/25/20 17:20 Total Bilirubin 0.9 mg/dL (0.2-1.2) 08/25/20 17:20 AST 23 U/L (5-34) 08/25/20 17:20 ALT 21 U/L (8-55) 08/25/20 17:20 Alkaline Phosphatase 52 U/L (40-110) 08/25/20 17:20 CK-MB (CK-2) 0.7 ng/mL (0-6.6) 08/25/20 17:20 Troponin I 0.121 ng/mL (< 0.028) H 08/25/20 17:20 Serum Total Protein 6.2 g/dL (6.0-8.3) 08/25/20 17:20 Albumin 3.5 g/dL (3.5-5.0) 08/25/20 17:20 Globulin 2.7 g/dL (2.4-3.5) 08/25/20 17:20 Albumin/Globulin Ratio 1.3 g/dL (1.2-2.2) 08/25/20 17:20 Hospitalist H&P A/P (1) SVT (supraventricular tachycardia) Code(s): I47.1 - SUPRAVENTRICULAR TACHYCARDIA Status: Acute (2) S/P CABG x 3 Code(s): Z95.1 - PRESENCE OF AORTOCORONARY BYPASS GRAFT Status: Acute (3) Hypertension Code(s): I10 - ESSENTIAL (PRIMARY) HYPERTENSION Status: Acute Plan: SVTlikely due to post CABG -Continue amiodarone Follow cardiology consult Status post CABGstable Hypertensioncontrolled now Dispositionadmit to observation possible hospital stay for less than 24 hours
[2020-08-25 21:05] LABS: Troponin I 0.045 ng/mL (< 0.028)
[2020-08-25] MEDS ORDERED: Ondansetron PF 4 MG/2 ML Vial IVP PRN (21:20)
[2020-08-26] MEDS: Simethicone Chewable 80 MG TAB PO PRN ×3 (01:21→21:49)
[2020-08-26] MEDS: Amiodarone 450 MG in Dextrose 5% in Water 250 ML IVPB SCH ×2 (01:51→18:37)
[2020-08-26 06:14] LABS: Anion Gap 11 mmol/L (10-20); BUN (Urea Nitrogen) 11 mg/dL (8.4-25.7); Calc. Creatinine Clearance 0 mL/min (70-130); Calcium 8.4 mg/dL (7.8-10.44); Carbon Dioxide 24 mmol/L (22-29); Chloride 107 mmol/L (98-107); Glucose 106 mg/dL (70-105); Sodium 138 mmol/L (136-145)
[2020-08-26] MEDS ORDERED: Aspirin 325 MG TAB ONE (08:44)
[2020-08-26] MEDS ORDERED: Famotidine 20 MG TAB ONE (08:44)
[2020-08-26] MEDS ORDERED: Metoprolol Tartrate 5 MG/5 ML VIAL ONE (08:44)
[2020-08-26] MEDS: Famotidine 20 MG TAB PO SCH ×2 (09:34→21:49)
[2020-08-26] MEDS: Aspirin 325 MG TAB PO SCH (09:34)
[2020-08-26] MEDS: Lisinopril 2.5 MG TAB PO SCH (09:41)
[2020-08-26] MEDS: Metoprolol Tartrate 25 MG TAB PO SCH ×2 (09:46→21:50)
--- NOTE | 2020-08-26 13:56 | PDOC.HOSPP ---
- Subjective Encounter Date: 08/26/20 Encounter Time: 13:54 Subjective: no chest pain, sob - Objective Vital Signs & Weight: Vital Signs (12 hours) Pulse BP 08/26/20 09:41 75 139/78 Result Diagrams: 08/25/20 17:20 08/26/20 05:49 Hospitalist ROS - Medication Medications: Active Medications Generic Name Dose Route Start Last Admin Trade Name Freq PRN Reason Stop Dose Admin Aspirin 325 mg 08/26/20 09:00 08/26/20 09:34 Aspirin 325 Mg Tab PO 325 mg DAILY GENEVIEVE Administration Famotidine 20 mg 08/26/20 09:00 08/26/20 09:34 Famotidine 20 Mg Tab PO 20 mg BID GENEVIEVE Administration Amiodarone HCl 450 mg/ 259 mls @ 0 mls/hr 08/26/20 01:00 08/26/20 01:51 Dextrose/Water IVPB 259 mls INF GENEVIEVE Administration Protocol Per Protocol Lisinopril 2.5 mg 08/26/20 09:00 08/26/20 09:41 Lisinopril 2.5 Mg Tab PO 2.5 mg DAILY GENEVIEVE Administration Metoprolol Tartrate 12.5 mg 08/26/20 09:00 08/26/20 09:46 Metoprolol Tartrate 25 Mg Tab PO 12.5 mg BID GENEVIEVE Administration Simethicone 80 mg 08/25/20 21:43 08/26/20 11:02 Simethicone Chewable 80 Mg Tab PO 80 mg PCHS PRN Administration Gas Pain Hospitalist Exam Vitals: Vital Signs (12 hours) Pulse BP 08/26/20 09:41 75 139/78 General Appearance: awake alert Neck: no JVD Heart: RRR, no murmur Respiratory: CTAB Respiratory - other findings: healing mid-line chest incision Gastrointestinal: soft, non-distended, normal bowel sounds Extremities: 1+ LE edema Hosp A/P (1) CAD (coronary artery disease) Code(s): I25.10 - ATHSCL HEART DISEASE OF [place] CORONARY ARTERY W/O ANG PCTRS Status: Acute (2) S/P CABG x 3 Code(s): Z95.1 - PRESENCE OF AORTOCORONARY BYPASS GRAFT Status: Acute (3) SVT (supraventricular tachycardia) Code(s): I47.1 - SUPRAVENTRICULAR TACHYCARDIA Status: Acute (4) Dyslipidemia Code(s): E78.5 - HYPERLIPIDEMIA, UNSPECIFIED Status: Acute (5) Hypertension Code(s): I10 - ESSENTIAL (PRIMARY) HYPERTENSION Status: Acute - Plan in RSR on iv amiodarone consult with cardiology
--- NOTE | 2020-08-26 17:11 | CON ---
DATE OF CONSULTATION: 08/26/2020 REASON FOR CONSULTATION: Atrial fibrillation with RVR. PRIMARY WORKERS' COMPENSATION CLAIMS EXAMINER: Escobar Gallegos MD HISTORY OF PRESENT ILLNESS: Mr. Araiza is a pleasant 55-year-old white gentleman, who comes to the hospital for tachycardia. He was admitted on the 22 of August for a planned CABG performed by Dr. Bird. He had a bypass done. He actually did very well postoperatively. Yesterday, he was sent home and about 3 hours into being at home, Gio relaxing, he suddenly felt lightheaded and palpitations. His heart rate was in the 190s, 180s. This was coming and going, eventually stayed, so he called 911 and he was found to be tachycardic with a heart rate in the 190s on the way over, thought to be either SVT versus atrial fibrillation. He was brought to the ER where he was given a bolus of amiodarone and he slowed down and has actually converted back into sinus rhythm. Looking at the EKG, it looks like he was in atrial fibrillation at that time. PAST MEDICAL HISTORY: 1. Hypertension. 2. Coronary artery disease as above. OUTPATIENT MEDICATIONS: 1. Aspirin 325 mg a day. 2. [place] p.r.n. 3. Lisinopril 2.5 mg a day. 4. Levaquin 750 mg a day. 5. Metoprolol tartrate 25 mg half a tab twice a day. 6. Atorvastatin 10 mg a day. ALLERGIES: NO KNOWN DRUG ALLERGIES. SOCIAL HISTORY: No alcohol, tobacco, or drugs. Drinks about 3 cups of coffee a day. 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 REVIEW OF SYSTEMS: A 12-point review of systems was done and was found to be negative other than stated in the history of present illness. PHYSICAL EXAMINATION: VITAL SIGNS: Temperature 97.2, pulse 75, respiratory rate 16, sat 98% on room air, blood pressure 139/78. GENERAL: Awake, alert, oriented x3, in no distress. HEENT: Normocephalic, atraumatic. NECK: Supple. LUNGS: Clear. CARDIOVASCULAR: S1, S2. No S3 or S4. No murmurs or rubs. ABDOMEN: Soft. Positive bowel sounds. EXTREMITIES: No edema. SKIN: Warm and dry. LABORATORY WORK: Reviewed. CBC with a white count of 10, hemoglobin of 11, hematocrit of 33, platelet count of 175. Chemistries were unremarkable. Troponin was 0.12, 0.04, 0.10, and CK-MB was normal. ASSESSMENT: 1. Postoperative atrial fibrillation. 2. Severe multivessel disease, status post CABG. 3. Hypertension. PLAN: 1. We will switch his amiodarone drip to p.o. We will give him his first dose right now of amiodarone at 400 mg twice a day, first dose now. We will keep him overnight and if tomorrow he remains in sinus rhythm after his a.m. dose, then he may go home tomorrow with an amiodarone load at 400 mg twice a day for 10 days and then 200 mg a day after that for maintenance. We will get an EKG tomorrow to make sure his QT is not prolonged. 2. This is considered postop atrial fibrillation and no indication for anticoagulation at this time. If he recurs after monthly, we will re-evaluate and may give anticoagulation at that point. Aspirin alone for now. Thank you for letting us to participate in the care of your patient. We will follow. Job ID: [id number]
[2020-08-26 17:25] VITALS: BMI 31.9
[2020-08-26] MEDS ORDERED: Atorvastatin Calcium 10 MG TAB PO SCH (21:00)
[2020-08-26] MEDS: Amiodarone 200 MG TAB PO SCH (21:49)
[2020-08-27 07:51] VITALS: BP 117/63; TEMP 97.8
[2020-08-27] MEDS: Metoprolol Tartrate 25 MG TAB PO SCH (09:47)
[2020-08-27] MEDS: Aspirin 325 MG TAB PO SCH (09:47)
[2020-08-27] MEDS: Amiodarone 200 MG TAB PO SCH (09:47)
[2020-08-27] MEDS: Lisinopril 2.5 MG TAB PO SCH (09:47)
[2020-08-27] MEDS: Famotidine 20 MG TAB PO SCH (09:47)
--- NOTE | 2020-08-27 10:37 | DIS ---
DATE OF ADMISSION: 08/26/2020 DATE OF DISCHARGE: 08/27/2020 PRIMARY CARE PROVIDER: Milad Dang MD. DISPOSITION: Discharged home. FINAL DIAGNOSES: Atrial fibrillation with rapid ventricular response, status post coronary artery bypass graft, coronary artery disease, hypertension, dyslipidemia. DISCHARGE MEDICATIONS: New; 1. Amiodarone 400 mg p.o. b.i.d. x10 days, then 200 mg p.o. b.i.d. after that. 2. Aspirin 325 mg a day. 3. Lipitor 10 mg a day. 4. Lisinopril 2.5 mg a day. 5. Metoprolol 25 mg half tablet twice a day. ALLERGIES: NO KNOWN DRUG ALLERGIES. DIET: Heart healthy. PENDING AT TIME OF DISCHARGE: Nothing. CODE STATUS: Full. HOSPITAL COURSE: The patient was discharged on 08/25 from the hospital. Several hours later, he developed sweats, dizziness, severe palpitations, that his heart rate was in the 170s, brought to EMS. Heart rate was in the 190s, received Cardizem and then amiodarone infusion. Heart rate came down. He eventually transitioned spontaneously into sinus rhythm. Since then he has had 1 episode of 32-beats of atrial fibrillation. He was seen in consultation by Dr. Escobar Gallegos. The patient is currently on p.o. amiodarone, off IV. He is in regular sinus rhythm, feeling well. I have discussed the case with Dr. Gallegos. He is agreeable with the patient being discharged. He is being cautioned about further irregular beats, if he has palpitations he is to call Dr. Gallegos or his primary care provider. If it is severe, he is to return to the emergency room. I have asked him to see his primary care provider in 3 days, to see Dr. Gallegos per his request. Job ID: [id number] [facility]
--- NOTE | 2020-08-27 22:16 | EKG ---
Test Reason : Blood Pressure : / mmHG Vent. Rate : 076 BPM Atrial Rate : 076 BPM P-R Int : 162 ms QRS Dur : 092 ms QT Int : 388 ms P-R-T Axes : 071 053 053 degrees QTc Int : 436 ms Normal sinus rhythm Nonspecific T wave abnormality now evident in Can not rule out Inferior infarct , age undetermined Abnormal ECG When compared with ECG of 25-AUG-2020 17:03, (Unconfirmed) Inferior infarct is now Present Confirmed by Madelyn GARCIA ([id number]) on 08/27/2020 10:16:20 PM Referred By: LONG Confirmed By:Madelyn GARCIA
--- NOTE | 2020-08-29 00:35 | PQF ---
CLINICAL DOCUMENTATION CLARIFICATION FORM: Dear : Brian Terrell Date / Time: 08/29/202033 Please exercise your independent, professional judgment in responding to the clarification form. Clinical indicators are provided on the bottom of this form for your review Please check appropriate box(s): [ p ] Paroxysmal Atrial Fibrillation [ ] Permanent Atrial Fibrillation [ ] Persistent Atrial Fibrillation [ ] Long Standing Persistent Atrial Fibrillation [ ] Chronic Atrial Fibrillation [ ] Post-Operative Complication - Atrial Fibrillation, specified as: [ ] Paroxysmal Atrial Fibrillation [ ] Persistent Atrial Fibrillation [ ] Other Diagnosis, please specify [ ] Unable to Determine Physician Signature: Date/Time: For continuity of documentation, please document condition throughout progress notes and discharge summary. Thank You. To be completed by CDI/Coding staff for physician review: Present Clinical Indicators - Signs / Symptoms / Labs Results and Location in Medical Record [x] BP 125/79, Pulse 125, Resp 20 Vital signs 08/25 [x] Develop sudden recurrent dizziness, nausea but no vomiting and palpitation H&P p1 08/25 Dr York [x] On ER noted with SVT to 190s H&P p1 08/25 Dr York [x] Being admiited for SVT post CABG H&P p1 08/25 Dr York [x] Had CABG 3 days ago H&P p1 08/25 Dr York [x] Postoperative atrial fibrillation Consult Dr Gallegos 08/26 Present Risk Factors Results and Location in Medical Record [x] HTN H&P p1 08/25 Dr York [x] CAD s/p CABG H&P p1 08/25 Dr York [x] HLD HP 08/25 Present Treatments Results and Location in Medical Record [x] IV Lopressor 5 mg SEP 03 [x] IV Cardizem 25 mg SEP 03 [x] IV Amiodaron Hcl 150 mg SEP 03 [x] Aspirin 325 mg oral SEP 03 [x] Cardio Consult Consult Dr Gallegos 08/26 CDS/Outpatient Receptionist Signature: Sharon Chialicja Phone #: [phone] Date/Time: 08/29/2033 This is a permanent part of the Medical Record [facility]
== END 2020-08-27 11:08 | disposition home or self-care (01) | DRG 310 ==
LOC: ERS 16:50 → ERHOLD 19:24 → 2NO 08-26 16:55 → OBSVTOIN 08-26 17:46
PROVIDERS: ADMIT Internal Medicine; ATTEND Internal Medicine
DX: I48.0 Paroxysmal atrial fibrillation (principal); Z95.1 Presence of aortocoronary bypass graft; I47.1 Supraventricular tachycardia; I25.10 Atherosclerotic heart disease of native coronary artery without angina pectoris; I10 Essential (primary) hypertension; E78.5 Hyperlipidemia, unspecified; Z79.82 Long term (current) use of aspirin; Z79.899 Other long term (current) drug therapy; Z79.890 Hormone replacement therapy
CPT/HCPCS: 36415; 71045; 80053; 82553; 83735; 84484; 85025; 93005; J0282; J7070

== ENCOUNTER 2022-10-01 14:40 | Outpatient (CLI) | payer BC | END 2022-10-01 14:41 | disposition home or self-care (01) | LOC: BICCT 14:40 | PROVIDERS: ATTEND Family Medicine | DX: R10.30 Lower abdominal pain, unspecified (principal) | CPT/HCPCS: 74177; 82565 ==